=== PATIENT | male | born 1970 | race Caucasian/White ===

== ENCOUNTER 2018-01-26 13:30 | Inpatient (IN) | payer OTHER ==
[~2018-01-26] VITALS: Ht 190.5 cm; Wt 97.5 kg
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
[2018-01-26 13:50] VITALS: BP 133/93
[2018-01-26 14:35] LABS: ABSOLUTE BASOPHIL COUNT 0 /CUMM (0.0-0.2); ABSOLUTE EOSINOPHIL COUNT 0 /CUMM (0.0-0.7); ABSOLUTE GRANULOCYTE CT 3.5 /CUMM (1.4-6.5); ABSOLUTE LYMPH COUNT 0.3 /CUMM (1.2-3.4); ABSOLUTE MONOCYTE COUNT 0.3 /CUMM (0.10-0.60); BASOPHIL % 0.1 % (0.0-2.0); EOSINOPHIL % 0.4 % (0-5); GRANULOCYTE % 84.2 % (42.2-75.2); HEMATOCRIT 40.1 % (42-52); MEAN CORPUSCULAR VOLUME 97.2 FL (80.0-94.0); MEAN PLATELET VOLUME 7.4 FL (7.4-10.4); RBC DISTRIBUTION WIDTH 14.4 % (11.5-14.5); RED BLOOD CELL CT 4.12 /CUMM (4.70-6.10); WHITE BLOOD CELL COUNT 4.1 /CUMM (4.8-10.8)
[2018-01-26 14:52] LABS: PLATELET COUNT 83 /CUMM (130-400)
--- NOTE | 2018-01-26 15:33 | CT SCAN REPORT ---
EXAMINATION: CT OF THE HEAD WITHOUT CONTRAST CT OF THE CERVICAL SPINE WITHOUT CONTRAST CLINICAL INFORMATION: Frequent falls. Head injury. Presumptive diagnosis of intracranial hemorrhage. Fall. Hand and foot numbness. Resumption diagnosis of fracture.. COMPARISON: None. TECHNIQUE: Contiguous axial imaging was performed from the skullbase to vertex without intravenous administration of contrast. Coronal reformations of the head were obtained. Contiguous axial imaging was then performed from the skull base down to the thoracic inlet. Coronal and sagittal reformations of the cervical spine were obtained. DLP: 1133.14 mGy-cm. FINDINGS: CT scan of the head: There is no evidence of acute intracranial hemorrhage or territorial infarction. No abnormal mass-effect or midline shift is seen. Veronica to white matter differentiation is well preserved. No extra-axial fluid collections are identified. The ventricles are normal in size. There is no abnormal attenuation within the brain parenchyma. The osseous structures and soft tissues are normal. Partial opacification of the left mastoid air cells is seen. The remainder of the mastoid air cells and visualized portions of the paranasal sinuses are well-aerated. CT scan of the cervical spine: Normal alignment is seen with no evidence of acute fracture or dislocation. Craniocervical junction and atlantoaxial articulations are intact. Prevertebral soft tissues are normal in thickness. The included soft tissues of the neck and lung apices are unremarkable. IMPRESSION: CT scan of the head: No acute intracranial pathology. Partial opacification of the left mastoid air cells. CT scan of the cervical spine: No evidence of cervical spine fracture or malalignment.
[2018-01-26 15:39] VITALS: BP 164/106
[2018-01-26 18:00] VITALS: BP 156/90
[2018-01-26 18:30] VITALS: BP 156/90
--- NOTE | 2018-01-26 19:02 | Admission Certification ---
Admission Certification Certification Statement - As attending physician, I certify that at the time of - admission, based on clinical presentation, severity of - symptoms, need for further diagnostic testing and - therapeutic interventions, and risk of adverse outcomes - without in-hospital treatment, in my clinical assessment, - this patient requires an acute hospital stay for a minimum - of two nights or longer. I have also considered psychsocial - factors such as support system, advanced age, financial - issues, cognitive issues, and failed out-patient treatments, - past re-admission history, safety of patient, and lack of - compliance as applicable. Specific rationale supporting this admission is: transaminitis, s/p fall, likely etoh abuse
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
[2018-01-26 22:47] VITALS: BP 128/66
[2018-01-27 06:15] VITALS: BP 144/90
[2018-01-27 08:00] VITALS: BP 144/90
--- NOTE | 2018-01-27 09:46 | PN- Housestaff ---
See Addendum Subjective Follow-up For: Alcohol Withdrawal Hypomagnesemia Subjective: Afebrile overnight. Patient is awake in bed and sitting comfortably. Patient states he feels much better today and is ready to go home as he has a lot of work to get done. Patient states that whatever medications were given to him has already helped him. Patient feels fine however has mild tremors in bilateral hands noted. Patient otherwise denies any fevers, chills, fatigue, lightheadedness, chest pain, and shortness of breath. Review of Systems Constitutional: Reports: see HPI. Objective Last 24 Hrs of Vital Signs/I&O Vital Signs Date Time Temp Pulse Resp B/P B/P Pulse O2 O2 Flow FiO2 Mean Ox Delivery Rate 01/27 1600 98.4 80 20 162/90 01/27 1453 98.4 80 20 162/90 97 01/27 0800 Room Air 01/27 0800 98.3 87 20 144/90 01/27 0615 98.3 87 20 144/90 96 Room Air 01/26 2247 98.2 92 20 128/66 97 01/26 1830 98.7 118 20 156/90 97 Room Air Intake & Output 01/27 1600 01/27 0800 01/27 0000 Intake Total 730 1450 300 Output Total 500 400 Balance 730 950 -100 Intake, IV 250 450 Intake, Oral 480 1000 300 Number 0 Bowel Movements Output, Urine 500 400 Patient 215 lb Weight Weight Reported by Patient Measurement Method Physical Exam General Appearance: Alert, Oriented X3, Cooperative, No Acute Distress, slight shakes and tremors on exam Skin: No Rashes Neck: Supple, No JVD Cardiovascular: Regular Rate, Normal S1, Normal S2 Lungs: Clear to Auscultation Abdomen: Soft, No Tenderness Neurological: Normal Speech, Normal Tone, tremors b/l hands; gait with slight unsteadiness upon standing Assessment/Plan Assessment: 47 YO M with no known PMH who comes in for CC of worsening bilat LE pain and falls. In ED he was found to be tremulous with Mag 0.7, slight hyponatremia, AST 114, ALT 94, T. bili 2.2,leukopenia, thrombocytopenia, anemia with borderline elevated MCV, negative Utox with ataxia and confusion. Despite the negative utox and pt denying excessive consumption of etoh or etoh related problems, the amalgamation of his presentation and labs seem to suggest etoh as likely culprit for his presentation. Furthermore, despite lack of opthalmoplegia, pt presented with ataxia and slight confabulation so differential includes Wernicke's encephalopathy or a possibly a more chronic Korsakoff syndrome. However, an acute alcohol withdrawl and associated delirium cannot be ruled out. Neuropathy and Ataxia with Hx of EtOH: * [facility] protocol; Ativan 1.5 mg q6 discontinued; prn Ativan 1 mg q1 * High dose thiamine: 500mg Q8 Thiamine along with PO supplementation (Banana bag does not have sufficient concentration of vitamins) * PO Folate * PO multivitamin * Po Thiamine * B12, Folate levels normal * Check phos lvl-given ketones in urine and likely hx etoh c/o re-feeding syndrome * Social work consulted Hypomag: was 0.7 and given 2mg IV. * Recheck and replete aggressively * 1.7 Mg 01/27 Transamanitis: * Monitor in AM Pancytopenia: Likely 2/2 etoh. no Anticoagulants. * Monitor in AM HTN: Likely 2/2 etoh withdrawl. * Con't monitor. * [facility] Problem List: 1. Alcohol withdrawal 2. Hypomagnesemia Pain Ratin Pain Location: na Pain Goal: Remain pain free Pain Plan: na Tomorrow's Labs & Rationales: na
[2018-01-27 11:00] LABS: ABSOLUTE BASOPHIL COUNT 0 /CUMM (0.0-0.2); ABSOLUTE EOSINOPHIL COUNT 0.1 /CUMM (0.0-0.7); ABSOLUTE GRANULOCYTE CT 2.7 /CUMM (1.4-6.5); ABSOLUTE LYMPH COUNT 0.6 /CUMM (1.2-3.4); ABSOLUTE MONOCYTE COUNT 0.3 /CUMM (0.10-0.60); BASOPHIL % 0.2 % (0.0-2.0); EOSINOPHIL % 1.7 % (0-5); GRANULOCYTE % 74.7 % (42.2-75.2); HEMATOCRIT 36.6 % (42-52); MEAN CORPUSCULAR HGB CONC 34.5 G/DL (33.0-37.0); MEAN CORPUSCULAR VOLUME 98.5 FL (80.0-94.0); MEAN PLATELET VOLUME 8.8 FL (7.4-10.4); PLATELET COUNT 66 /CUMM (130-400); RBC DISTRIBUTION WIDTH 14.2 % (11.5-14.5); RED BLOOD CELL CT 3.72 /CUMM (4.70-6.10); WHITE BLOOD CELL COUNT 3.6 /CUMM (4.8-10.8)
[2018-01-27 14:53] VITALS: BP 162/90
[2018-01-27 16:00] VITALS: BP 162/90
[2018-01-27 20:25] VITALS: BP 180/100
--- NOTE | 2018-01-27 22:32 | RADIOLOGY REPORT ---
EXAMINATION: XR KNEE, LEFT CLINICAL INFORMATION: Fall hitting left knee. COMPARISON: None TECHNIQUE: Four views of the left knee. FINDINGS: No fracture or subluxation. Compartmental joint spaces are maintained. Tiny marginal osteophytes are present at the patellofemoral department. No joint effusion. The soft tissues are unremarkable. IMPRESSION: No acute fracture or malalignment. Minimal degenerative change of the patellofemoral compartment.
--- NOTE | 2018-01-28 04:37 | Event Note ---
Event Note Event Note: S: Was paged around 2029 tonight that patient had fallen while standing without injury, but landed on his left knee. B: Mr Mel is here for alcohol withdrawal, gait instability, ?Wernickes. Is forgetful, unpredictable, has tried to leave several times today AMA to go to the convenience store or home, has a sitter. A: Plain films were ordered, which were negative for any occult fracture. There is mild bruising of the left knee but patient states that has been there already. States that he had tripped and fell while reaching up for something on the shelf. No focal neuro deficits noted. FROM and strength, although gait is unsteady which has been stable for patients admission. R: Continued monitoring. No acute fractures or pathology. Frequent reorientation needed for patient, continue sitter; ativan PRN. Nursing staff instructed to page me if patient attempts to leave room again - given previous falls and unpredictability might require noe. Will monitor off restraints for now. Henrique [place] #[id number]
[2018-01-28 06:00] VITALS: BP 174/100
[2018-01-28 06:38] VITALS: BP 174/100
--- NOTE | 2018-01-28 07:03 | Event Note ---
Event Note Event Note: Patient was complaining I am not getting any medication and feeling well, I need to go home. Patient movement was wobbly, he was not in position to go home. - Patient counseled that its not safe for you to go home. He was reassured regarding his concern for not taking medication. Patient agreed to stay here in hospital overnight. He was under observation for fall risk with a sitter.
[2018-01-28 08:34] LABS: ABSOLUTE BASOPHIL COUNT 0 /CUMM (0.0-0.2); ABSOLUTE EOSINOPHIL COUNT 0.1 /CUMM (0.0-0.7); ABSOLUTE GRANULOCYTE CT 3.5 /CUMM (1.4-6.5); ABSOLUTE MONOCYTE COUNT 0.5 /CUMM (0.10-0.60); BASOPHIL % 0.1 % (0.0-2.0); EOSINOPHIL % 2.2 % (0-5); GRANULOCYTE % 68.2 % (42.2-75.2); MEAN CORPUSCULAR HGB 33.4 PG (27.0-31.0); MEAN CORPUSCULAR HGB CONC 33.8 G/DL (33.0-37.0); MEAN CORPUSCULAR VOLUME 98.7 FL (80.0-94.0); MEAN PLATELET VOLUME 9.4 FL (7.4-10.4); RBC DISTRIBUTION WIDTH 14.1 % (11.5-14.5); RED BLOOD CELL CT 4.27 /CUMM (4.70-6.10); WHITE BLOOD CELL COUNT 5.1 /CUMM (4.8-10.8)
[2018-01-28 08:47] LABS: HEMATOCRIT 42.1 % (42-52)
[2018-01-28 08:57] VITALS: BP 160/100
--- NOTE | 2018-01-28 09:17 | PN- Housestaff ---
See Addendum Subjective Follow-up For: Alcohol withdrawal Hypomagnesemia (resolved) Subjective: Afebrile overnight. Patient is sitting comfortably in his chair. Patient is adamant that he needs to go home but understands he needs to stay as an inpatient for the time being to be monitored for any alcohol withdrawal symptoms. Patient has been walking regularly without assistance but did have one fall episode last night, which his knee x-ray came back as negative for any acute abnormality. Patient denies any tremors or shakes but does have some slight hand tremors on exam. Patient otherwise denies any chest pain, lightheadedness, dizziness, n/v, and abdominal pain. Review of Systems Constitutional: Reports: see HPI. Objective Last 24 Hrs of Vital Signs/I&O Vital Signs Date Time Temp Pulse Resp B/P B/P Pulse O2 O2 Flow FiO2 Mean Ox Delivery Rate 01/28 1053 134 20 140/90 100 Room Air 01/28 1000 134 20 140/90 01/28 0857 98.4 91 20 160/100 96 Room Air 01/28 0638 98.5 96 20 174/100 01/28 0638 98.5 76 20 174/100 97 01/28 0600 98.5 96 20 174/100 01/27 2025 98.2 109 20 180/100 99 01/27 1600 98.4 80 20 162/90 01/27 1453 98.4 80 20 162/90 97 Intake & Output 01/28 1600 01/28 0800 01/28 0000 Intake Total 475 550 Output Total Balance 475 550 Intake, IV 275 250 Intake, Oral 200 300 Number 0 Bowel Movements Physical Exam General Appearance: Alert, oriented to person, not to place; patient is confabulating Skin: No Rashes, No Breakdown HEENT: Atraumatic Neck: Supple, No JVD Cardiovascular: Regular Rate, Normal S1, Normal S2 Lungs: Clear to Auscultation Abdomen: Soft, No Tenderness Neurological: tremors b/l hands; unsteady gait Extremities: No Edema, Normal Pulses Assessment/Plan Assessment: 47 YO M with no known PMH who comes in for CC of worsening bilat LE pain and falls. In ED he was found to be tremulous with Mag 0.7, slight hyponatremia, AST 114, ALT 94, T. bili 2.2,leukopenia, thrombocytopenia, anemia with borderline elevated MCV, negative Utox with ataxia and confusion. Despite the negative utox and pt denying excessive consumption of etoh or etoh related problems, the amalgamation of his presentation and labs seem to suggest etoh as likely culprit for his presentation. Furthermore, despite lack of opthalmoplegia, pt presented with ataxia and slight confabulation so differential includes Wernicke's encephalopathy or a possibly a more chronic Korsakoff syndrome. However, an acute alcohol withdrawl and associated delirium cannot be ruled out. Neuropathy and Ataxia with Hx of EtOH: * [facility] protocol; Ativan 1 mg q6; prn Ativan 1 mg q1 * High dose thiamine: 500mg Q8 Thiamine along with PO supplementation (Banana bag does not have sufficient concentration of vitamins) * PO Folate, PO multivitamin, PO Thiamine * B12, Folate levels normal * Checked phosphorus 3.0 nl * Social work consulted * Pt. continues to feel he is ready to go home, however patient does not have adequate transportation at this time and has experienced recent falls as of today Hypomag: was 0.7 and given 2mg IV. 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 no Anticoagulants. * Improving platelet count, Hgb 14.2, WBC normalized HTN: Likely 2/2 etoh withdrawl. * Continue to monitor. * [facility] Problem List: 1. Alcohol withdrawal 2. Hypomagnesemia Pain Ratin Pain Location: na Pain Goal: Remain pain free Pain Plan: na Tomorrow's Labs & Rationales: na
[2018-01-28 09:18] LABS: PLATELET COUNT 89 /CUMM (130-400)
[2018-01-28 10:00] VITALS: BP 140/90
[2018-01-28 10:53] VITALS: BP 140/90
--- NOTE | 2018-01-28 14:26 | Patient Discharge Instructions ---
Discharge Instructions General Discharge Information You were seen/treated for: Alcohol Withdrawal Hypomagnesemia You had these procedures: Head CT Watch for these problems: If you experience any further tremors, dizziness, falls, fevers, and/or fatigue please follow up with your PCP/[facility]. Special Instructions: Please follow up with [facility] (PCP) within 7 days. Please take all home medications as prescribed. Please take Folic Acid, Thiamine, and your Multivitamin as prescribed. Please take Amlodipine once daily for high blood pressure. Diet Continue normal diet: Yes Recommended Diet: Regular Activity Full Activity/No Limits: No Activity Self Limited: Yes Acute Coronary Syndrome Inclusion Criteria At DC or during hospital stay patient has or had the following: ACS DIAGNOSIS No Discharge Core Measures Meds if any: Prescribed or Continued at Discharge Meds if any: NOT Prescribed or Continued at Discharge Congestive Heart Failure Inclusion Criteria At DC or during hospital stay patient has or had the following: CHF DIAGNOSIS No Discharge Core Measures Meds if any: Prescribed or Continued at Discharge Meds if any: NOT Prescribed or Continued at Discharge Cerebrovascular accident Inclusion Criteria At DC or during hospital stay patient has or had the following: CVA/TIA Diagnosis No Discharge Core Measures Meds if any: Prescribed or Continued at Discharge Meds if any: NOT Prescribed or Continued at Discharge Venous thromboembolism Inclusion Criteria VTE Diagnosis No Discharge Core Measures - Per Current guidelines, there needs to be overlap - treatment for the first 5 days of Warfarin therapy. - If discharged on Warfarin prior to 5 days of - overlap therapy, the patient will need to be - assessed for post discharge needs including - *Post discharge parental anticoagulation - *Warfarin and/or parental anticoagulation education - *Follow up date to check INR post discharge Meds if any: Prescribed or Continued at Discharge Note: Overlap Therapy is Warfarin and Anticoagulant Meds if any: NOT Prescribed or Continued at Discharge
[2018-01-28] MEDS ORDERED: AMLODIPINE BESYL5 M1 PO (14:30)
[2018-01-28] MEDS ORDERED: THIAMINE HCL500 MG PO (14:30)
[2018-01-28] MEDS ORDERED: FOLIC ACID1 M1 PO (14:30)
[2018-01-28] MEDS ORDERED: ONE DAILY MULT1 EAC2 PO (14:30)
[2018-01-28 14:37] VITALS: BP 144/98
--- NOTE | 2018-01-29 09:45 | Discharge Summary ---
Visit Information Visit Dates Admission Date: 01/26/18 Discharge Date: 01/28/18 Hospital Course Course Attending Physician: Marty Campo MD Primary Care Physician: Patient Has No Primary Care Dr Hospital Course: 47 YO M with no known PMH who came in to the ED with a chief complaint of worsening bilateral LE pain and falls. In ED he was found to be tremulous with Mag 0.7, slightly hyponatremic, AST 114, ALT 94, Total bilirubin 2.2,leukopenia, thrombocytopenia, anemia with borderline elevated MCV, negative Utox with ataxia and confusion. Despite the negative urine toxicology and patient denying excessive consumption of etoh or etoh related problems, the amalgamation of his presentation and labs seemed to suggest Alcohol as the likely culprit for his presentation. Furthermore, despite lack of opthalmoplegia, pt presented with ataxia and slight confabulation so differential included Wernicke's encephalopathy or a possibly a more chronic Korsakoff syndrome. However, an acute alcohol withdrawal and associated delirium was also in the differential. 1. Neuropathy and Ataxia with Hx of Alcohol Abuse: * [facility] protocol; Ativan 1 mg q6; prn Ativan 1 mg q1 * High dose thiamine: 500mg Q8 Thiamine along with PO supplementation (Banana bag does not have sufficient concentration of vitamins) * PO Folate, PO multivitamin, PO Thiamine * B12, Folate levels normal * Checked phosphorus 3.0 nl * Social work consulted * Pt. discharged home to follow up with [facility] on an outpatient basis 2. Wernicke Encephalopathy due to chronic alcohol abuse associated with thiamine deficiency * Patient showed signs of neurological deficit with mental status changes and gait disturbances * Received high dose Thiamine 500mg Q8 along with PO supplementation * Improved of mental status and gait with administration of thiamine prior to discharge 3. Hypomag: was 0.7 and given 2mg IV. 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 Pancytopenia: Likely 2/2 etoh. no Anticoagulants. * Improving platelet count, Hgb 14.2, WBC normalized 6. HTN: Likely 2/2 etoh withdrawl. * Continue to monitor. * [facility] Allergies: Coded Allergies: No Known Allergies (01/26/18) Significant Procedures: CT scan of the head: No acute intracranial pathology. Partial opacification of the left mastoid air cells. CT scan of the cervical spine: No evidence of cervical spine fracture or malalignment. Pertinent Lab Results: WBC 5.1 Magnesium 1.7 Disposition Summary Disposition Principal Diagnosis: Alcohol Withdrawal, with associated Wernicke Encephalopathy Hypomagnesemia Additional Diagnosis: Transamanitis Pancytopenia Hypertension Discharge Disposition: home or self care Discharge Instructions General Discharge Information Code Status: Full Code Patient's Diet: Regular Patient's Activity: Ad david Follow-Up Instructions/Appts: Please follow up with [facility] within 7 days. Please continue to take your home medications as prescribed. Medications at Discharge Discharge Medications: Start taking the following new medications: Folic Acid (Folic Acid) 1 MG TABLET 1 Milligram ORAL DAILY Qty = 30 No Refills Comments: Last Taken:01/28/18 Time:9AM Multivitamin (One Daily Multivitamin) 1 EACH TABLET 1 Tablet ORAL DAILY Qty = 30 No Refills Comments: Last Taken:01/28/18 Time:9AM Amlodipine Besylate (Amlodipine Besylate) 5 MG TABLET 1 Tablet ORAL DAILY Qty = 30 No Refills Comments: Last Taken:01/28/18 Time:6AM Thiamine HCl (Thiamine HCl) 500 MG TABLET 1 Tablet ORAL DAILY Qty = 30 No Refills Comments: NOT GIVEN Copies To: NO PCP Attending MD Review Statement Documenting Attending: Marty Campo MD Other Findings: Agree with the above summary and plan of care. The patient declined follow-up here. Was given referral to [facility] as he has no insurance. Was ambulating safely at the time of discharge (observed by myself and house staff).
== END 2018-01-28 14:53 | DRG 897 ==
LOC: ERH 13:30 → 2NA 15:42 → ERHI 15:42 → ENRESERV 16:30 → ENTRNSPT 17:27 → EDTRNSPT 17:41 → EDTRNSPTSTS 17:41 → 2NA 17:55 → CMPTRNSPT 18:35 → 2NA 01-27 08:11
PROVIDERS: Emergency Medicine; Student in an Organized Health Care Education/Training Program
DX: F10.231 Alcohol dependence with withdrawal delirium (principal); E51.2 Wernicke's encephalopathy; R17 Unspecified jaundice; E87.1 Hypo-osmolality and hyponatremia; D61.818 Other pancytopenia; E83.42 Hypomagnesemia; S01.91XA Laceration without foreign body of unspecified part of head, initial encounter; W19.XXXA Unspecified fall, initial encounter; D69.6 Thrombocytopenia, unspecified; G62.9 Polyneuropathy, unspecified; Y90.0 Blood alcohol level of less than 20 mg/100 ml; R74.0 Nonspecific elevation of levels of transaminase and lactic acid dehydrogenase [LDH]; I10 Essential (primary) hypertension; Z91.81 History of falling; R26.81 Unsteadiness on feet
CPT/HCPCS: 2NASP; 36592; 73560-LT; 80307; 81001; 82436; 93005; 93010; 96374; 96375; 97116-GO; 97161-GP; 97530-GO; G0480; J1650; J2405; J3490; J7040

== ENCOUNTER 2018-02-10 07:02 | Inpatient (IN) | payer SELFPAY ==
[~2018-02-10] VITALS: Ht 190.5 cm; Wt 107.0 kg
[2018-02-10] VITALS (10 sets, daily range): BP systolic 133–185; BP diastolic 74–109
[~2018-02-10 07:02] MED LIST: AMLODIPINE BESYL5 M1 PO; FOLIC ACID1 M1 PO; ONE DAILY MULT1 EAC2 PO; THIAMINE HCL500 MG PO
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
[2018-02-10 08:00] LABS: ABSOLUTE BASOPHIL COUNT 0 /CUMM (0.0-0.2); ABSOLUTE EOSINOPHIL COUNT 0 /CUMM (0.0-0.7); ABSOLUTE GRANULOCYTE CT 2.9 /CUMM (1.4-6.5); ABSOLUTE LYMPH COUNT 0.7 /CUMM (1.2-3.4); ABSOLUTE MONOCYTE COUNT 0.5 /CUMM (0.10-0.60); BASOPHIL % 0.9 % (0.0-2.0); EOSINOPHIL % 0.4 % (0-5); GRANULOCYTE % 70.8 % (42.2-75.2); HEMATOCRIT 36.7 % (42-52); MEAN CORPUSCULAR HGB 34.3 PG (27.0-31.0); MEAN CORPUSCULAR HGB CONC 35.3 G/DL (33.0-37.0); MEAN CORPUSCULAR VOLUME 97.2 FL (80.0-94.0); MEAN PLATELET VOLUME 6.8 FL (7.4-10.4); PLATELET COUNT 194 /CUMM (130-400); RBC DISTRIBUTION WIDTH 14.2 % (11.5-14.5); RED BLOOD CELL CT 3.77 /CUMM (4.70-6.10); WHITE BLOOD CELL COUNT 4.1 /CUMM (4.8-10.8)
--- NOTE | 2018-02-10 08:16 | CT SCAN REPORT ---
EXAMINATION: CT HEAD WITHOUT CONTRAST CLINICAL INFORMATION: Head trauma. Alcohol use with recent fall and left forehead laceration. COMPARISON: 01/26/2018 TECHNIQUE: Contiguous axial imaging was performed from the skull base to vertex without intravenous administration of contrast. DLP: 705 mGy-cm FINDINGS: Brain parenchyma: No acute findings. Ovalle-white matter differentiation is well preserved. No evidence of an acute major vascular territory infarction, hemorrhage, mass or midline shift. Cerebrospinal fluid spaces: Normal. No hydrocephalus or extra-axial fluid collections. Cerebellum and brainstem: Unremarkable. The 4th ventricle is midline in position. The cerebellopontine angles are normal. Calvarium and temporomandibular joints: Calvarium is intact. Again noted is opacification of some of the left mastoid air cells, unchanged compared to 01/26/2018. The TMJs are normal. Paranasal sinuses and orbits: Paranasal sinuses are well aerated and without air-fluid levels. No acute intraorbital pathology. Other: Laceration of left frontal scalp associated with small subgaleal hematoma measuring 0.3 cm AP. IMPRESSION: 1. No acute intracranial pathology compared to 01/26/2018. 2. Left frontal scalp laceration with small subgaleal hematoma.
--- NOTE | 2018-02-10 14:55 | RADIOLOGY REPORT ---
EXAMINATION: XR HIP, LEFT CLINICAL INFORMATION: Left hip pain status post fall yesterday COMPARISON: 12/16/2017 TECHNIQUE: Two views of the left hip. FINDINGS: Alignment is normal. The femoral head is well-positioned within the intact acetabulum. No evidence of arthritic disease, femoral fracture or acetabular injury. IMPRESSION: Normal left hip.
--- NOTE | 2018-02-10 15:01 | RADIOLOGY REPORT ---
EXAMINATION: XR SHOULDER, LEFT CLINICAL INFORMATION: Shoulder pain after fall yesterday. COMPARISON: None TECHNIQUE: Three views of the left shoulder. FINDINGS: Alignment is normal at the acromioclavicular and glenohumeral joints. Mild osteoarthrosis of the acromioclavicular joint. No acute fracture or subluxation. The coracoclavicular and acromiohumeral distances are normal. Old, healed fracture of the left lateral sixth rib. The visualized left lung is normal. IMPRESSION: - No acute findings at the left shoulder. - Old, healed fracture of the left lateral sixth rib.
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
[2018-02-11] VITALS (11 sets, daily range): BP systolic 133–165; BP diastolic 79–101
[2018-02-11 08:19] LABS: ABSOLUTE BASOPHIL COUNT 0 /CUMM (0.0-0.2); ABSOLUTE EOSINOPHIL COUNT 0.1 /CUMM (0.0-0.7); ABSOLUTE GRANULOCYTE CT 2.6 /CUMM (1.4-6.5); ABSOLUTE LYMPH COUNT 0.8 /CUMM (1.2-3.4); ABSOLUTE MONOCYTE COUNT 0.4 /CUMM (0.10-0.60); BASOPHIL % 0.5 % (0.0-2.0); EOSINOPHIL % 1.7 % (0-5); GRANULOCYTE % 67.2 % (42.2-75.2); HEMATOCRIT 39.4 % (42-52); MEAN CORPUSCULAR HGB CONC 34.3 G/DL (33.0-37.0); MEAN CORPUSCULAR VOLUME 99.1 FL (80.0-94.0); PLATELET COUNT 171 /CUMM (130-400); RBC DISTRIBUTION WIDTH 13.9 % (11.5-14.5); RED BLOOD CELL CT 3.98 /CUMM (4.70-6.10); WHITE BLOOD CELL COUNT 3.9 /CUMM (4.8-10.8)
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
--- NOTE | 2018-02-11 11:38 | PN- Att Addend ---
Attending Addendum Attending Brief Note Patient seen and examined, he was still having some shaking. He was complaining of tingling in his bilateral upper and lower extremities. Patient was recently admitted with alcohol intoxication about 2 weeks ago. Vital Signs Date Time Temp Pulse Resp B/P B/P Pulse O2 O2 Flow FiO2 Mean Ox Delivery Rate 02/11 1103 98.8 71 20 167/92 96 Room Air 02/11 0931 98.7 65 16 135/86 02/11 0912 98.7 65 20 135/86 95 Room Air 02/11 0845 98.2 105 20 165/95 02/11 0613 98.2 105 20 165/95 02/11 0613 98.2 105 20 165/95 96 Room Air 02/11 0400 98.9 63 20 151/92 02/11 0400 98.9 63 20 151/92 97 Room Air 02/11 0158 98.1 85 20 149/79 02/11 0157 98.1 85 20 149/79 97 Room Air 02/10 2334 98.6 79 20 159/74 98 Room Air 02/10 2330 98.6 79 20 159/74 02/10 2224 98.5 67 18 133/86 98 Room Air 02/10 2200 98.5 67 18 133/86 02/10 2000 99.1 78 20 146/82 02/10 1958 99.1 78 20 146/82 97 Room Air 02/10 1806 98.8 99 18 157/107 02/10 1612 98.8 72 14 155/83 97 Room Air 02/10 1603 98.8 72 14 155/83 02/10 1503 98.0 61 18 144/82 02/10 1453 98.0 61 18 144/82 95 Room Air 02/10 1230 98.0 84 20 150/90 02/10 1154 98.0 84 20 150/90 02/10 1137 96 Room Air 02/10 1136 98.0 84 20 150/90 96 Room Air on exam; aox3, nad. cv; s1,s2, rrr resp; clear abd; soft, nt, bs+ ext; no edema Laboratory Tests 02/11 02/10 0607 1330 Chemistry Sodium (137 - 145 mmol/L) 133 L Potassium (3.5 - 5.1 mmol/L) 4.2 Chloride (98 - 107 mmol/L) 101 Carbon Dioxide (22 - 30 mmol/L) 27 Anion Gap (5 - 16) 5 BUN (9 - 20 mg/dL) 10 Creatinine (0.7 - 1.2 mg/dL) 0.7 Estimated GFR (>60 ml/min) > 60 BUN/Creatinine Ratio (7 - 25 %) 14.3 Magnesium (1.6 - 2.3 mg/dL) 1.6 Vitamin B12 (239 - 931 pg/mL) 535 Folate (2.76 - 20.0 ng/mL) 6.3 Hematology CBC w Diff NO MAN DIFF REQ WBC (4.8 - 10.8 /CUMM) 3.9 L RBC (4.70 - 6.10 /CUMM) 3.98 L Hgb (14.0 - 18.0 G/DL) 13.5 L Hct (42 - 52 %) 39.4 L MCV (80.0 - 94.0 FL) 99.1 H MCH (27.0 - 31.0 PG) 34.0 H MCHC (33.0 - 37.0 G/DL) 34.3 RDW (11.5 - 14.5 %) 13.9 Plt Count (130 - 400 /CUMM) 171 MPV (7.4 - 10.4 FL) 8.0 Gran % (42.2 - 75.2 %) 67.2 Lymphocytes % (20.5 - 51.1 %) 21.0 Monocytes % (1.7 - 9.3 %) 9.6 H Eosinophils % (0 - 5 %) 1.7 Basophils % (0.0 - 2.0 %) 0.5 Absolute Granulocytes (1.4 - 6.5 /CUMM) 2.6 Absolute Lymphocytes (1.2 - 3.4 /CUMM) 0.8 L Absolute Monocytes (0.10 - 0.60 /CUMM) 0.4 Absolute Eosinophils (0.0 - 0.7 /CUMM) 0.1 Absolute Basophils (0.0 - 0.2 /CUMM) 0 Toxicology Urine Opiates Screen (>2000 NG/ML) < 100 Methadone Screen (>300 NG/ML) < 40 Barbiturate Screen (>200 NG/ML) < 60 Ur Phencyclidine Scrn (>25 NG/ML) < 6.00 Amphetamines Screen (>1000 NG/ML) < 100 U Benzodiazepines Scrn (>200 NG/ML) < 85 Urine Cocaine Screen (>300 NG/ML) < 50 Urine Cannabis Screen (>50 NG/ML) < 5.00 Urines Urine Color (YEL,AMB,STR) YEL Urine Clarity (CLEAR) CLEAR Urine pH (5.0 - 8.0) 8.0 Ur Specific Alda (1.001 - 1.035) 1.020 Urine Protein (NEG,<30 MG/DL) NEG Urine Ketones (NEG) 15 H Urine Nitrite (NEG) NEG Urine Bilirubin (NEG) NEG Urine Urobilinogen (0.1 - 1.0 EU/dl) 1.0 Ur Leukocyte Esterase (NEG) NEG Ur Microscopic EXAM NOT REQUIRED Urine Hemoglobin (NEG) NEG Urine Glucose (N MG/DL) NEG 47-year-old male with past medical history significant for hypertension, alcohol use admitted with acute alcohol intoxication as well as fall. Patient was recently admitted with alcohol intoxication about 2 weeks ago. He is also complaining of tingling sensation in bilateral upper and lower extremities. Patient also had severe hypomagnesemia. Magnesium levels are improving while he is getting repleted. At this point he will be treated with scheduled and as needed Ativan per [facility]. Will continue high-dose thiamine, multivitamin and folate. 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 If this does not improve after the acute episode of withdrawal is over then will consider neurology evaluation. Patient will need social work evaluation. Continue the rest of the medications. Patient on heparin subcu for DVT prophylaxis.
[2018-02-11] MEDS ORDERED: NICOTINE PATCH1 EAC2 TOP (13:47)
--- NOTE | 2018-02-11 13:51 | Patient Discharge Instructions ---
Discharge Instructions General Discharge Information You were seen/treated for: alcohol detox peripheral neuropathy Special Instructions: -please follow up with pcp in one week -please follow up with neurology in 1-2 weeks Diet Continue normal diet: Yes Activity Full Activity/No Limits: Yes (as tolerated) Acute Coronary Syndrome Inclusion Criteria At DC or during hospital stay patient has or had the following: ACS DIAGNOSIS No Discharge Core Measures Meds if any: Prescribed or Continued at Discharge Meds if any: NOT Prescribed or Continued at Discharge Congestive Heart Failure Inclusion Criteria At DC or during hospital stay patient has or had the following: CHF DIAGNOSIS No Discharge Core Measures Meds if any: Prescribed or Continued at Discharge Meds if any: NOT Prescribed or Continued at Discharge Cerebrovascular accident Inclusion Criteria At DC or during hospital stay patient has or had the following: CVA/TIA Diagnosis No Discharge Core Measures Meds if any: Prescribed or Continued at Discharge Meds if any: NOT Prescribed or Continued at Discharge Venous thromboembolism Inclusion Criteria VTE Diagnosis No VTE Type NONE VTE Confirmed by (Test) NONE Discharge Core Measures - Per Current guidelines, there needs to be overlap - treatment for the first 5 days of Warfarin therapy. - If discharged on Warfarin prior to 5 days of - overlap therapy, the patient will need to be - assessed for post discharge needs including - *Post discharge parental anticoagulation - *Warfarin and/or parental anticoagulation education - *Follow up date to check INR post discharge At least 5 days overlap therapy as Inpatient No Meds if any: Prescribed or Continued at Discharge Note: Overlap Therapy is Warfarin and Anticoagulant Meds if any: NOT Prescribed or Continued at Discharge
[2018-02-12 01:42] VITALS: BP 148/76
[2018-02-12 05:30] VITALS: BP 152/82
[2018-02-12 05:32] VITALS: BP 152/82
--- NOTE | 2018-02-12 07:28 | Event Note ---
Event Note Event Note: S:He stated that his father has a stroke ten day ago and he needs to leave very early this morning as he is on his bed. Says his uber is already here and that he is very eager and anxious to leave. Pt will drive with his sister to go to [facility] to see him. States that he will not drive. B:This is a 47-year-old male with past medical history significant for hypertension, alcohol abuse presented to the hospital after fall. He presented to the emergency room with paresthesias of extremities associated with fall. We were treating him for: alc. jakub, recurrent falls due to lower limb paresthesias, lt frontal subgaleal hematoma evidenced on CT head s/p fall, hypokalemia, hypomagnesemia. A:Upon assessment, keeping in mind his paresthesias, multiple falls, anxiety, current medical condition, it is not safe to D/c the patient yet. All risks of injury and probable were explained to him. Pt was adamant to leave and appeared very anxious and shaky. R:Pt signed out AMA on 02/12/18 at 7.07 AM. IV line was removed.
== END 2018-02-12 07:07 | disposition left against medical advice (07) | DRG 894 ==
LOC: ERH 07:02 → ERHI 20:40
PROVIDERS: Emergency Medicine; Hospitalist
DX: F10.239 Alcohol dependence with withdrawal, unspecified (principal); E83.42 Hypomagnesemia; G62.9 Polyneuropathy, unspecified; R26.0 Ataxic gait; I10 Essential (primary) hypertension; R20.2 Paresthesia of skin; E87.6 Hypokalemia; S00.93XD Contusion of unspecified part of head, subsequent encounter; W19.XXXD Unspecified fall, subsequent encounter; Z91.81 History of falling; F17.200 Nicotine dependence, unspecified, uncomplicated
CPT/HCPCS: ERO; 73030-LT; 73502-LT; 80307; 81003; 82436; 96361; 96365; 96375; 97112-GP; 97161-GP; 97530-GP; 99291; G0480; J1644; J2405; J3490